=== PATIENT | female | born 1955 | race Caucasian/White ===

== ENCOUNTER 2021-03-29 09:55 | Emergency (ER) | payer OTHER, MEDICAID, SELFPAY ==
[2021-03-29] VITALS (59 sets, daily range): BP systolic 54–149; BP diastolic 34–75; PULSE 83–100; RESP 14–50; TEMP 34.8; O2SAT 77–100; BMI 19.7
--- NOTE | 2021-03-29 09:57 | DI.CT.S_ITS ---
PROCEDURE: CT ABDOMEN PELVIS W CON INDICATIONS: Left-sided abdominal pain TECHNIQUE: After the administration of oral and IV contrast, axial sections were acquired from the lung bases to the pubic symphysis. Coronal and sagittal reformats were performed. For radiation dose reduction, the following was used: automated exposure control, adjustment of mA and/or kV according to patient size. COMPARISON: [facility], , [place] ABDOMEN LIMITED, 03/29/2021, 10:27. FINDINGS: Image quality: Excellent. Lung bases: No pleural effusion. Punctate nodule in the right lower lobe measuring 0.2 cm is likely a calcified granuloma. Heart: Small right and midline pericardial nodules. Trace pericardial fluid. Paraesophageal nodule with central hypodensity measuring 2.6 x 2.2 cm, (2/8). ABDOMEN: Liver: Multiple irregular hypodense hepatic lesions. For example: -inferior right lobe measures 6.3 x 3.8 cm, (2/32). -superior right lobe confluent lesion measuring at 6.8 x 6.7 cm, (2/10). Additional small lesions. Liver enhances heterogeneously. Liver is enlarged. Gallbladder: Dilated gallbladder. Trace pericholecystic fluid. Possible tiny calcified gallstone, (2/40). Biliary ducts: Left intrahepatic bile duct is prominent measuring at 0.7 cm, (2/21). The CBD is obscured. Pancreas: Hypodensity in the head of the pancreas. The pancreatic duct does not appear dilated. At the brianne hepatis and likely anterior to the pancreas there is confluent adenopathy with central hypodensity measuring 7.4 x 4.6 cm, (2/23). This measures 7.5 cm in craniocaudal dimension, (4/20). Spleen: No splenomegaly. Adrenal Glands: Minimal thickening of the left adrenal gland. Kidneys and Ureters: No hydronephrosis. No solid renal mass. Small hypodensity in the inferior pole of the left kidney. Stomach and Bowel: Stomach is prominent. There is no small bowel obstruction. The small bowel in the left abdomen demonstrates mild thickening, (2/41). A few colonic diverticuli. The appendix is not seen. Peritoneum: Moderate volume of ascites. No free air. Ventral Wall: No hernia. Abdominal Nodes: Prominent left periaortic node measuring 0.9 cm, (2/31). Shotty appearing retroperitoneal nodes. Suspect portal adenopathy as described above. Vessels: Aorta and inferior vena cava are normal in size. Extensive calcified atherosclerotic plaque. Portal vein appears attenuated. Intrahepatic periportal edema. PELVIS: Pelvic Organs: Uterus is within normal limits. Bladder: Distended. Pelvic Nodes: No enlarged lymph nodes. Miscellaneous: No inguinal hernias are seen. Bones: No suspicious lesions seen. Grade 1 anterolisthesis of L4 on L5. DDD. IMPRESSION: 1. Multiple irregular hypodense lesions in the liver consistent with metastatic disease. 2. Confluent adenopathy at the brianne hepatis with central necrosis is suspected. Alternatively, this could represent a large exophytic pancreatic adenocarcinoma. 3. Hydropic gallbladder. 4. Enlarged necrotic paraesophageal lymph node. Small pericardiac nodes. Small retroperitoneal nodes. 5. Mild prominence of the left intrahepatic bile duct. CBD is obscured. 6. Moderate ascites. Dictated by: Yassine Contreras M.D. on 03/29/2021 at 10:39 Approved by: Yassine Contreras M.D. on 03/29/2021 at 11:03
--- NOTE | 2021-03-29 10:03 | ED_ITS ---
HPI - General Adult <Armin Navarro DO - Last Filed: 03/30/21 06:57> General Chief complaint: Abdominal Pain Stated complaint: LRQ pain and weakness Time Seen by Provider: 03/29/21 09:56 Source: patient Mode of arrival: EMS History of Present Illness HPI narrative: Patient is a 65-year-old female who is brought in by EMS for evaluation of abdominal discomfort. She states that she has had abdominal discomfort off and on for the past week but it really has been worse for the past 12 hours. She did receive 100 mcg of fentanyl prior to arrival. She does drink alcohol on a daily basis. She is also jaundice which per EMS this is new for her. She also has abdominal distension which is new for her. She denies any other medical problems. Denies taking any medications. Has had no change in bowel habits. No urinary symptoms. No nausea vomiting. Does have some chest tightness. No shortness of breath. Related Data Allergies Allergy/AdvReac Type Severity Reaction Status Date / Time No Known Drug Allergies Allergy Verified 03/29/21 21:39 Review of Systems <DO Leroy Nash Last Filed: 03/30/21 06:57> Constitutional Constitutional: Denies fever(s) Cardiovascular Cardiovascular: Reports system reviewed and no additional complaints, except as documented Respiratory Respiratory: Reports system reviewed and no additional complaints, except as documented Gastrointestinal Gastrointestinal: Reports as per HPI and Reports system reviewed and no additional complaints, except as documented Genitourinary Genitourinary: Reports system reviewed and no additional complaints, except as documented Musculoskeletal Musculoskeletal: Reports system reviewed and no additional complaints, except as documented Integumentary/Breasts Skin/Breast: Reports as per HPI Neurologic Neurologic: Reports system reviewed and no additional complaints, except as documented Psychiatric Psychiatric: Reports system reviewed and no additional complaints, except as documented Hematologic/Lymphatic On Anticoagulants: No Allergic/Immunologic Allergic/Immunologic: Reports system reviewed and no additional complaints, except as documented Patient History <DO Leroy Nash Last Filed: 03/30/21 06:57> Medical History Patient denies medical problems Social History lives independently: Yes Smoking Status: Unknown if ever smoked Exam <DO Leroy Nash Last Filed: 03/30/21 06:57> Initial Vital Signs Initial Vital Signs: Vital Signs Pulse Rate 92 H 03/29/21 10:01 Respiratory Rate 20 03/29/21 10:01 Blood Pressure 137/73 03/29/21 10:01 Pulse Oximetry 99 03/29/21 10:01 Const General: cooperative and comfortable HENMT Head: normal to inspection and normocephalic Eyes Sclera: scleral abnormality (Jaundice) Resp Effort & Inspection: normal respiratory effort Auscultation: clear to auscultation bilaterally Cardio Rate: regular rate GI Inspection: distended Palpation: soft, No firm and tender Skin Other: Jaundice Neuro General: patient alert, patient awake, patient oriented x3 and moves all extremities Extrem General: normal to inspection and capillary refill normal Psych Appearance: grossly normal and well kempt <Ladonna Smalls DO - Last Filed: 03/30/21 06:29> Initial Vital Signs Initial Vital Signs: Vital Signs Pulse Rate 92 H 03/29/21 10:01 Respiratory Rate 20 03/29/21 10:01 Blood Pressure 137/73 03/29/21 10:01 Pulse Oximetry 99 03/29/21 10:01 <Ladonna Smalls DO - Last Filed: 03/30/21 06:29> Central Line Placement Right IJ: Patient Placed on Monitor/Pulse Ox: Yes MD Prep: mask, gown and gloves Central Line Prep: Chlorhexidine scrub Local Anesthetic: lidocaine 1% Amount of anesthesia used (mL): 3 Ultrasound Used for Placement: Yes Additional Comments: Unsuccessful attempt. Appears quite dry with very collapsible IJ. Right Femoral: Patient Placed on Monitor/Pulse Ox: Yes MD Prep: mask, gown and gloves Central Line Prep: Chlorhexidine scrub and sterile drapes applied Local Anesthetic: lidocaine 1% Amount of anesthesia used (mL): 5 Ultrasound Used for Placement: Yes Central Line Lumen Inserted: triple Post Procedure: sutured in place, good blood return, all ports aspirated, flushed, capped and sterile dressing applied Patient Tolerated Procedure: Well Scores <Armin Navarro DO - Last Filed: 03/30/21 06:57> [facility] [place] coma scale eye opening: Spontaneous Ade[place] coma scale verbal response: Orientated Adele coma scale motor response: Obey commands Adele coma scale total score: 15 <Ladonna Smalls DO - Last Filed: 03/30/21 06:29> GCS [place] coma scale total score: 15 Course <Armin Selinaantonia DO - Last Filed: 03/30/21 06:57> Orders Ordered: ED Orders 03/29/21 22:05 Lactate (Lactic Acid) Stat 03/30/21 00:14 Lactate (Lactic Acid) Stat 03/30/21 05:00 Complete Blood Count AUTO DIFF Stat Comprehensive Metabolic Panel Stat Lactate (Lactic Acid) Stat Troponin & CK Cardiac Panel Stat Discontinued Medications Aspirin (Aspirin 325 Mg Tablet) 325 mg PO NOW ONE Stop: 03/29/21 11:11 Last Admin: 03/29/21 11:30 Dose: 325 mg Documented by: NAHID Heparin Sodium (Porcine) (Heparin 5,000 Unit/Ml Vial) 4,000 unit IV NOW ONE Stop: 03/29/21 21:04 Last Admin: 03/29/21 21:35 Dose: Not Given Documented by: SUNIL Hydromorphone HCl (Hydromorphone 0.5 Mg Inj) 0.5 mg IV NOW ONE Stop: 03/29/21 16:18 Last Admin: 03/29/21 16:34 Dose: 0.5 mg Documented by: NAHID Hydromorphone HCl (Hydromorphone 0.5 Mg Inj) 0.5 mg IV NOW ONE Stop: 03/29/21 21:05 Last Admin: 03/29/21 21:05 Dose: 0.5 mg Documented by: NAHID Hydromorphone HCl (Hydromorphone 0.5 Mg Inj) 0.5 mg IV NOW ONE Stop: 03/30/21 01:53 Last Admin: 03/30/21 01:57 Dose: 0.5 mg Documented by: AGUSTIN Hydromorphone HCl (Hydromorphone 0.5 Mg Inj) 0.5 mg IV Q4H [facility] Last Admin: 03/30/21 05:54 Dose: 0.5 mg Documented by: Admin: 03/30/21 02:07 Dose: Not Given Documented by: AGUSTIN Hydromorphone HCl (Hydromorphone 0.5 Mg Inj) 0.5 mg IV NOW ONE Stop: 03/30/21 04:15 Last Admin: 03/30/21 04:23 Dose: 0.5 mg Documented by: AGUSTIN Ceftriaxone Sodium 1,000 mg/ (Sodium Chloride) 100 mls @ 200 mls/hr IV NOW ONE Stop: 03/29/21 11:10 Last Infusion: 03/29/21 12:09 Dose: 0 mls/hr Documented by: Admin: 03/29/21 11:31 Dose: 200 mls/hr Documented by: [email or web address] Metronidazole (Flagyl) 500 mg in 100 mls @ 100 mls/hr IV NOW ONE Stop: 03/29/21 12:08 Last Infusion: 03/29/21 13:37 Dose: 0 mls/hr Documented by: Admin: 03/29/21 11:30 Dose: 100 mls/hr Documented by: NAHID Sodium Chloride (Normal Saline 0.9%) 1,000 mls @ 1,000 mls/hr IV BOLUS ONE Stop: 03/29/21 13:46 Last Infusion: 03/29/21 13:59 Dose: 0 mls/hr Documented by: Admin: 03/29/21 12:45 Dose: 1,000 mls/hr Documented by: [email or web address] Sodium Chloride (Normal Saline 0.9%) 1,000 mls @ 1,000 mls/hr IV BOLUS ONE Stop: 03/29/21 19:48 Last Admin: 03/29/21 20:34 Dose: Not Given Documented by: NAHID Sodium Chloride (Normal Saline 0.9%) 1,000 mls @ 125 mls/hr IV CONT NICOLE Last Infusion: 03/29/21 23:34 Dose: 0 mls/hr Documented by: Infusion: 03/29/21 22:00 Dose: 500 mls/hr Documented by: Admin: 03/29/21 19:34 Dose: 125 mls/hr Documented by: NAHID Heparin Sodium/Dextrose (Heparin Drip) 25,000 unit in 500 mls @ 12.519 mls/hr IV CONT NICOLE; Protocol Last Admin: 03/29/21 21:50 Dose: Not Given Documented by: SUNIL Sodium Chloride (Normal Saline 0.9%) 1,000 mls @ 50 mls/hr IV BOLUS ONE Stop: 03/30/21 19:43 Last Infusion: 03/30/21 06:05 Dose: 0 mls/hr Documented by: Infusion: 03/30/21 03:50 Dose: 150 mls/hr Documented by: Infusion: 03/30/21 01:54 Dose: 0 mls/hr Documented by: Infusion: 03/30/21 01:53 Dose: 500 mls/hr Documented by: Admin: 03/29/21 23:55 Dose: 50 mls/hr Documented by: SUNIL Norepinephrine Bitartrate 4 mg (/ Dextrose) 254 mls @ 30.48 mls/hr IV TITRATE NICOLE; Protocol Last Titration: 03/30/21 06:04 Dose: 0 mcg/min, 0 mls/hr Documented by: Titration: 03/30/21 04:47 Dose: 1 mcg/min, 3.81 mls/hr Documented by: Titration: 03/30/21 04:00 Dose: 1.5 mcg/min, 5.715 mls/hr Documented by: Titration: 03/30/21 03:09 Dose: 2 mcg/min, 7.62 mls/hr Documented by: Titration: 03/30/21 02:41 Dose: 3 mcg/min, 11.43 mls/hr Documented by: Titration: 03/30/21 02:25 Dose: 4 mcg/min, 15.24 mls/hr Documented by: Titration: 03/30/21 01:49 Dose: 5 mcg/min, 19.05 mls/hr Documented by: Titration: 03/30/21 01:39 Dose: 8 mcg/min, 30.48 mls/hr Documented by: Titration: 03/30/21 01:34 Dose: 5 mcg/min, 19.05 mls/hr Documented by: Admin: 03/30/21 01:27 Dose: 2 mcg/min, 7.62 mls/hr Documented by: AGUSTIN Metronidazole (Flagyl) 500 mg in 100 mls @ 100 mls/hr IV NOW ONE Stop: 03/30/21 02:13 Last Infusion: 03/30/21 02:30 Dose: 0 mls/hr Documented by: Admin: 03/30/21 01:27 Dose: 100 mls/hr Documented by: AGUSTIN Ceftriaxone Sodium 2,000 mg/ (Sodium Chloride) 100 mls @ 200 mls/hr IV DAILY [facility] Metronidazole (Flagyl) 500 mg in 100 mls @ 100 mls/hr IV Q8H [facility] Last Admin: 03/30/21 02:07 Dose: Not Given Documented by: AGUSTIN Sodium Chloride (Normal Saline 0.9%) 1,641 mls @ 547 mls/hr 30 ml/kg infuse over 3 hr (1641 ml) IV NOW ONE Stop: 03/30/21 04:54 Last Infusion: 03/30/21 04:19 Dose: 0 mls/hr Documented by: Admin: 03/30/21 01:40 Dose: 547 mls/hr Documented by: AGUSTIN Metronidazole (Flagyl) 500 mg in 100 mls @ 100 mls/hr IV Q8H [facility] Morphine Sulfate (Morphine 4 Mg/Ml Inj) 4 mg IV NOW ONE Stop: 03/29/21 10:18 Last Admin: 03/29/21 10:21 Dose: 4 mg Documented by: NAHID Morphine Sulfate (Morphine 2 Mg/Ml Inj) 2 mg IV NOW ONE Stop: 03/29/21 13:40 Last Admin: 03/29/21 13:45 Dose: 2 mg Documented by: NAHID Vital Signs Vital signs: Vital Signs - 8 hr 03/29/21 22:57 03/29/21 23:00 03/29/21 23:09 Temperature Pulse Rate 92 H 90 91 H Respiratory Rate 16 16 19 Blood Pressure 99/58 L 94/55 L 94/51 L Pulse Oximetry 98 03/29/21 23:10 03/29/21 23:20 03/29/21 23:30 Temperature Pulse Rate 88 91 H 87 Respiratory Rate 15 17 15 Blood Pressure 91/50 L 93/50 L 102/56 L Pulse Oximetry 03/29/21 23:40 03/29/21 23:50 03/30/21 00:00 Temperature Pulse Rate 89 91 H 90 Respiratory Rate 16 17 16 Blood Pressure 97/53 L 91/53 L 88/52 L Pulse Oximetry 97 97 03/30/21 00:10 03/30/21 00:20 03/30/21 00:30 Temperature Pulse Rate 91 H 90 92 H Respiratory Rate 16 17 17 Blood Pressure 89/54 L 86/54 L 84/54 L Pulse Oximetry 98 98 98 03/30/21 00:40 03/30/21 00:50 03/30/21 01:00 Temperature Pulse Rate 92 H 90 91 H Respiratory Rate 16 16 17 Blood Pressure 84/52 L 84/51 L 83/51 L Pulse Oximetry 98 92 98 03/30/21 01:10 03/30/21 01:20 03/30/21 01:30 Temperature Pulse Rate 93 H 94 H 92 H Respiratory Rate 17 21 28 H Blood Pressure 82/50 L 73/48 L 71/51 L Pulse Oximetry 97 97 95 03/30/21 01:33 03/30/21 01:35 03/30/21 01:38 Temperature Pulse Rate 91 H 90 92 H Respiratory Rate 28 H 21 18 Blood Pressure 54/33 L 60/39 L 71/53 L Pulse Oximetry 98 98 100 03/30/21 01:40 03/30/21 01:46 03/30/21 01:50 Temperature 95.0 F L Pulse Rate 93 H 91 H 91 H Respiratory Rate 19 18 18 Blood Pressure 116/64 134/69 129/68 Pulse Oximetry 98 99 97 03/30/21 02:00 03/30/21 02:10 03/30/21 02:20 Temperature 95.9 F L 96.1 F L 96.1 F L Pulse Rate 88 87 88 Respiratory Rate 16 13 13 Blood Pressure 126/64 125/65 127/66 Pulse Oximetry 90 L 93 94 03/30/21 02:30 03/30/21 02:40 03/30/21 02:50 Temperature 96.1 F L 96.1 F L Pulse Rate 91 H 90 Respiratory Rate 15 15 Blood Pressure 118/65 119/63 115/60 Pulse Oximetry 91 90 L 03/30/21 03:00 03/30/21 03:10 03/30/21 03:20 Temperature 96.1 F L Pulse Rate 92 H Respiratory Rate 20 Blood Pressure 117/62 109/58 L 111/58 L Pulse Oximetry 95 03/30/21 03:30 03/30/21 03:40 03/30/21 03:50 Temperature 96.1 F L 96.1 F L 96.1 F L Pulse Rate 89 89 91 H Respiratory Rate 15 13 16 Blood Pressure 107/63 111/64 109/59 L Pulse Oximetry 91 92 94 03/30/21 04:00 03/30/21 04:10 03/30/21 04:20 Temperature 96.3 F L 96.4 F L Pulse Rate 92 H 92 H Respiratory Rate 17 15 Blood Pressure 110/60 101/60 97/57 L Pulse Oximetry 90 L 95 03/30/21 04:30 03/30/21 04:40 03/30/21 04:50 Temperature 96.6 F L Pulse Rate 90 Respiratory Rate 12 Blood Pressure 99/58 L 102/57 L 92/50 L Pulse Oximetry 94 03/30/21 05:00 03/30/21 05:10 03/30/21 05:20 Temperature 96.6 F L 96.6 F L 96.8 F L Pulse Rate 90 90 91 H Respiratory Rate 13 12 13 Blood Pressure 91/53 L 94/52 L 93/52 L Pulse Oximetry 94 96 93 03/30/21 05:30 03/30/21 05:40 03/30/21 05:50 Temperature 96.8 F L 96.8 F L 96.8 F L Pulse Rate 92 H 92 H 92 H Respiratory Rate 13 14 14 Blood Pressure 94/54 L 89/54 L 91/53 L Pulse Oximetry 94 95 94 03/30/21 06:00 Temperature Pulse Rate 94 H Respiratory Rate 16 Blood Pressure Pulse Oximetry <Ladonna Smalls DO - Last Filed: 03/30/21 06:29> Orders Ordered: ED Orders 03/29/21 22:05 Lactate (Lactic Acid) Stat 03/30/21 00:14 Lactate (Lactic Acid) Stat 03/30/21 05:00 Complete Blood Count AUTO DIFF Stat Comprehensive Metabolic Panel Stat Lactate (Lactic Acid) Stat Troponin & CK Cardiac Panel Stat Discontinued Medications Aspirin (Aspirin 325 Mg Tablet) 325 mg PO NOW ONE Stop: 03/29/21 11:11 Last Admin: 03/29/21 11:30 Dose: 325 mg Documented by: NAHID Heparin Sodium (Porcine) (Heparin 5,000 Unit/Ml Vial) 4,000 unit IV NOW ONE Stop: 03/29/21 21:04 Last Admin: 03/29/21 21:35 Dose: Not Given Documented by: SUNIL Hydromorphone HCl (Hydromorphone 0.5 Mg Inj) 0.5 mg IV NOW ONE Stop: 03/29/21 16:18 Last Admin: 03/29/21 16:34 Dose: 0.5 mg Documented by: NAHID Hydromorphone HCl (Hydromorphone 0.5 Mg Inj) 0.5 mg IV NOW ONE Stop: 03/29/21 21:05 Last Admin: 03/29/21 21:05 Dose: 0.5 mg Documented by: NAHID Hydromorphone HCl (Hydromorphone 0.5 Mg Inj) 0.5 mg IV NOW ONE Stop: 03/30/21 01:53 Last Admin: 03/30/21 01:57 Dose: 0.5 mg Documented by: AGUSTIN Hydromorphone HCl (Hydromorphone 0.5 Mg Inj) 0.5 mg IV Q4H [facility]ICO[facility] Last Admin: 03/30/21 05:54 Dose: 0.5 mg Documented by: Admin: 03/30/21 02:07 Dose: Not Given Documented by: AGUSTIN Hydromorphone HCl (Hydromorphone 0.5 Mg Inj) 0.5 mg IV NOW ONE Stop: 03/30/21 04:15 Last Admin: 03/30/21 04:23 Dose: 0.5 mg Documented by: AGUSTIN Ceftriaxone Sodium 1,000 mg/ (Sodium Chloride) 100 mls @ 200 mls/hr IV NOW ONE Stop: 03/29/21 11:10 Last Infusion: 03/29/21 12:09 Dose: 0 mls/hr Documented by: Admin: 03/29/21 11:31 Dose: 200 mls/hr Documented by: NAHID Metronidazole (Flagyl) 500 mg in 100 mls @ 100 mls/hr IV NOW ONE Stop: 03/29/21 12:08 Last Infusion: 03/29/21 13:37 Dose: 0 mls/hr Documented by: Admin: 03/29/21 11:30 Dose: 100 mls/hr Documented by: NAHID Sodium Chloride (Normal Saline 0.9%) 1,000 mls @ 1,000 mls/hr IV BOLUS ONE Stop: 03/29/21 13:46 Last Infusion: 03/29/21 13:59 Dose: 0 mls/hr Documented by: Admin: 03/29/21 12:45 Dose: 1,000 mls/hr Documented by: NAHID Sodium Chloride (Normal Saline 0.9%) 1,000 mls @ 1,000 mls/hr IV BOLUS ONE Stop: 03/29/21 19:48 Last Admin: 03/29/21 20:34 Dose: Not Given Documented by: NAHID Sodium Chloride (Normal Saline 0.9%) 1,000 mls @ 125 mls/hr IV CONT NICOLE Last Infusion: 03/29/21 23:34 Dose: 0 mls/hr Documented by: Infusion: 03/29/21 22:00 Dose: 500 mls/hr Documented by: Admin: 03/29/21 19:34 Dose: 125 mls/hr Documented by: NAHID Heparin Sodium/Dextrose (Heparin Drip) 25,000 unit in 500 mls @ 12.519 mls/hr IV CONT NICOLE; Protocol Last Admin: 03/29/21 21:50 Dose: Not Given Documented by: SUNIL Sodium Chloride (Normal Saline 0.9%) 1,000 mls @ 50 mls/hr IV BOLUS ONE Stop: 03/30/21 19:43 Last Infusion: 03/30/21 06:05 Dose: 0 mls/hr Documented by: Infusion: 03/30/21 03:50 Dose: 150 mls/hr Documented by: Infusion: 03/30/21 01:54 Dose: 0 mls/hr Documented by: Infusion: 03/30/21 01:53 Dose: 500 mls/hr Documented by: Admin: 03/29/21 23:55 Dose: 50 mls/hr Documented by: SUNIL Norepinephrine Bitartrate 4 mg (/ Dextrose) 254 mls @ 30.48 mls/hr IV TITRATE NICOLE; Protocol Last Titration: 03/30/21 06:04 Dose: 0 mcg/min, 0 mls/hr Documented by: Titration: 03/30/21 04:47 Dose: 1 mcg/min, 3.81 mls/hr Documented by: Titration: 03/30/21 04:00 Dose: 1.5 mcg/min, 5.715 mls/hr Documented by: Titration: 03/30/21 03:09 Dose: 2 mcg/min, 7.62 mls/hr Documented by: Titration: 03/30/21 02:41 Dose: 3 mcg/min, 11.43 mls/hr Documented by: Titration: 03/30/21 02:25 Dose: 4 mcg/min, 15.24 mls/hr Documented by: Titration: 03/30/21 01:49 Dose: 5 mcg/min, 19.05 mls/hr Documented by: Titration: 03/30/21 01:39 Dose: 8 mcg/min, 30.48 mls/hr Documented by: Titration: 03/30/21 01:34 Dose: 5 mcg/min, 19.05 mls/hr Documented by: Admin: 03/30/21 01:27 Dose: 2 mcg/min, 7.62 mls/hr Documented by: AGUSTIN Metronidazole (Flagyl) 500 mg in 100 mls @ 100 mls/hr IV NOW ONE Stop: 03/30/21 02:13 Last Infusion: 03/30/21 02:30 Dose: 0 mls/hr Documented by: Admin: 03/30/21 01:27 Dose: 100 mls/hr Documented by: AGUSTIN Ceftriaxone Sodium 2,000 mg/ (Sodium Chloride) 100 mls @ 200 mls/hr IV DAILY [facility] Metronidazole (Flagyl) 500 mg in 100 mls @ 100 mls/hr IV Q8H [facility] Last Admin: 03/30/21 02:07 Dose: Not Given Documented by: AGUSTIN Sodium Chloride (Normal Saline 0.9%) 1,641 mls @ 547 mls/hr 30 ml/kg infuse over 3 hr (1641 ml) IV NOW ONE Stop: 03/30/21 04:54 Last Infusion: 03/30/21 04:19 Dose: 0 mls/hr Documented by: Admin: 03/30/21 01:40 Dose: 547 mls/hr Documented by: AGUSTIN Metronidazole (Flagyl) 500 mg in 100 mls @ 100 mls/hr IV Q8H [facility] Morphine Sulfate (Morphine 4 Mg/Ml Inj) 4 mg IV NOW ONE Stop: 03/29/21 10:18 Last Admin: 03/29/21 10:21 Dose: 4 mg Documented by: NAHID Morphine Sulfate (Morphine 2 Mg/Ml Inj) 2 mg IV NOW ONE Stop: 03/29/21 13:40 Last Admin: 03/29/21 13:45 Dose: 2 mg Documented by: NAHID Vital Signs Vital signs: Vital Signs - 8 hr 03/29/21 22:57 03/29/21 23:00 03/29/21 23:09 Temperature Pulse Rate 92 H 90 91 H Respiratory Rate 16 16 19 Blood Pressure 99/58 L 94/55 L 94/51 L Pulse Oximetry 98 03/29/21 23:10 03/29/21 23:20 03/29/21 23:30 Temperature Pulse Rate 88 91 H 87 Respiratory Rate 15 17 15 Blood Pressure 91/50 L 93/50 L 102/56 L Pulse Oximetry 03/29/21 23:40 03/29/21 23:50 03/30/21 00:00 Temperature Pulse Rate 89 91 H 90 Respiratory Rate 16 17 16 Blood Pressure 97/53 L 91/53 L 88/52 L Pulse Oximetry 97 97 03/30/21 00:10 03/30/21 00:20 03/30/21 00:30 Temperature Pulse Rate 91 H 90 92 H Respiratory Rate 16 17 17 Blood Pressure 89/54 L 86/54 L 84/54 L Pulse Oximetry 98 98 98 03/30/21 00:40 03/30/21 00:50 03/30/21 01:00 Temperature Pulse Rate 92 H 90 91 H Respiratory Rate 16 16 17 Blood Pressure 84/52 L 84/51 L 83/51 L Pulse Oximetry 98 92 98 03/30/21 01:10 03/30/21 01:20 03/30/21 01:30 Temperature Pulse Rate 93 H 94 H 92 H Respiratory Rate 17 21 28 H Blood Pressure 82/50 L 73/48 L 71/51 L Pulse Oximetry 97 97 95 03/30/21 01:33 03/30/21 01:35 03/30/21 01:38 Temperature Pulse Rate 91 H 90 92 H Respiratory Rate 28 H 21 18 Blood Pressure 54/33 L 60/39 L 71/53 L Pulse Oximetry 98 98 100 03/30/21 01:40 03/30/21 01:46 03/30/21 01:50 Temperature 95.0 F L Pulse Rate 93 H 91 H 91 H Respiratory Rate 19 18 18 Blood Pressure 116/64 134/69 129/68 Pulse Oximetry 98 99 97 03/30/21 02:00 03/30/21 02:10 03/30/21 02:20 Temperature 95.9 F L 96.1 F L 96.1 F L Pulse Rate 88 87 88 Respiratory Rate 16 13 13 Blood Pressure 126/64 125/65 127/66 Pulse Oximetry 90 L 93 94 03/30/21 02:30 03/30/21 02:40 03/30/21 02:50 Temperature 96.1 F L 96.1 F L Pulse Rate 91 H 90 Respiratory Rate 15 15 Blood Pressure 118/65 119/63 115/60 Pulse Oximetry 91 90 L 03/30/21 03:00 03/30/21 03:10 03/30/21 03:20 Temperature 96.1 F L Pulse Rate 92 H Respiratory Rate 20 Blood Pressure 117/62 109/58 L 111/58 L Pulse Oximetry 95 03/30/21 03:30 03/30/21 03:40 03/30/21 03:50 Temperature 96.1 F L 96.1 F L 96.1 F L Pulse Rate 89 89 91 H Respiratory Rate 15 13 16 Blood Pressure 107/63 111/64 109/59 L Pulse Oximetry 91 92 94 03/30/21 04:00 03/30/21 04:10 03/30/21 04:20 Temperature 96.3 F L 96.4 F L Pulse Rate 92 H 92 H Respiratory Rate 17 15 Blood Pressure 110/60 101/60 97/57 L Pulse Oximetry 90 L 95 03/30/21 04:30 03/30/21 04:40 03/30/21 04:50 Temperature 96.6 F L Pulse Rate 90 Respiratory Rate 12 Blood Pressure 99/58 L 102/57 L 92/50 L Pulse Oximetry 94 03/30/21 05:00 03/30/21 05:10 03/30/21 05:20 Temperature 96.6 F L 96.6 F L 96.8 F L Pulse Rate 90 90 91 H Respiratory Rate 13 12 13 Blood Pressure 91/53 L 94/52 L 93/52 L Pulse Oximetry 94 96 93 03/30/21 05:30 03/30/21 05:40 03/30/21 05:50 Temperature 96.8 F L 96.8 F L 96.8 F L Pulse Rate 92 H 92 H 92 H Respiratory Rate 13 14 14 Blood Pressure 94/54 L 89/54 L 91/53 L Pulse Oximetry 94 95 94 03/30/21 06:00 Temperature Pulse Rate 94 H Respiratory Rate 16 Blood Pressure Pulse Oximetry Medical Decision Making <Armin Navarro - Last Filed: 03/30/21 06:57> Lab Data Lab results reviewed: Yes I reviewed the patient's lab results. Result diagrams: 03/30/21 05:00 03/30/21 05:00 Labs: Lab Results 03/29/21 03/29/21 03/29/21 Range/Units 10:00 10:00 10:00 WBC 33.9 H* (4.5-11.0) X10^3/uL RBC 3.05 L (4.0-5.2) X10^6/uL Hgb 9.1 L (12.0-16.0) g/dL Hct 27.0 L (36-46) % MCV 88.5 (80-100) fL MCH 29.7 (26-34) PG MCHC 33.5 (30-36) % RDW 15.2 H (11.6-14.8) % Plt Count 670 H (150-400) X10^3/uL Neut % (Auto) Not Reportable Lymph % (Auto) Not Reportable [place] % (Auto) Not Reportable Eos % (Auto) Not Reportable Baso % (Auto) Not Reportable Lymph # (Auto) Not Reportable [place] # (Auto) Not Reportable Baso # (Auto) Not Reportable Total Counted 100 Seg Neutrophils % 94.0 H (38-70) % Band Neutrophils % 2.0 L (3-7) % Lymphocytes % (Manual) 3.0 L (25-45) % Monocytes % (Manual) 1.0 L (2-11) % Neutrophils # (Manual) 95910 H (3583-8848) /uL RBC Morphology Not Reportable Poikilocytosis 1+ H Anisocytosis 2+ H PT (10.1-12.7) SECONDS INR (0.9-1.3) APTT (26.4-36.2) SECONDS Sodium 122 L (137-145) mmol/L Potassium 3.7 (3.4-5.1) mmol/L Chloride 86 L (98-107) mmol/L Carbon Dioxide 24 (22-32) mmol/L BUN 40 H (7-17) mg/dL Creatinine 0.69 (0.52-1.04) mg/dL Estimated GFR > 60.0 (>60) mL/min BUN/Creatinine Ratio 58.0 H (6-22) Glucose 169 H (80-110) mg/dL Lactate 2.8 H (0.7-2.1) mmol/L Calcium 10.1 (8.4-10.2) mg/dL Total Bilirubin 3.8 H (0.2-1.3) mg/dL Conjugated Bilirubin 0.9 H (0.0-0.3) md/dL Unconjugated Bilirubin 0.8 (0.0-1.1) mg/dL GGT (12-43) U/L AST 104 H (14-36) IU/L ALT 99 H (<35) IU/L Alkaline Phosphatase 1915 H (38-126) U/L Total Creatine Kinase (30-135) U/L CK-MB (CK-2) CK-MB (CK-2) Rel Index Troponin I (0.01-0.034) ng/mL Total Protein 7.3 (6.3-8.2) g/dL Albumin 3.7 (3.5-5.0) g/dL Globulin 3.6 (1.7-4.1) g/dL Albumin/Globulin Ratio 1.0 (1.0-2.8) Lipase 21 L (23-300) U/L Urine Color Urine Appearance Urine pH (4.5-8.0) Ur Specific [place] (1.000-1.035) Urine Protein (Negative) Urine Glucose (UA) (Negative) g/dL Urine Ketones (NEGATIVE) Urine Occult Blood (Negative) Urine Nitrate (Negative) Urine Bilirubin (NEGATIVE) Ur Bilirubin Confirm (Negative) Urine Urobilinogen (0.2) E.U./dL Ur Leukocyte Esterase (NEGATIVE) Urine RBC (0-5/HPF) Urine WBC (0-5/HPF) Urine Bacteria (None) Ur Culture Indicated? Acetaminophen < 10 L (10-30) ug/mL Ethyl Alcohol < 10 ( - 10) mg/dL SARS-CoV-2 (PCR) (Negative) 03/29/21 03/29/21 03/29/21 Range/Units 10:00 10:00 10:45 WBC (4.5-11.0) X10^3/uL RBC (4.0-5.2) X10^6/uL Hgb (12.0-16.0) g/dL Hct (36-46) % MCV (80-100) fL MCH (26-34) PG MCHC (30-36) % RDW (11.6-14.8) % Plt Count (150-400) X10^3/uL Neut % (Auto) Lymph % (Auto) [place] % (Auto) Eos % (Auto) Baso % (Auto) Lymph # (Auto) [place] # (Auto) Baso # (Auto) Total Counted Seg Neutrophils % (38-70) % Band Neutrophils % (3-7) % Lymphocytes % (Manual) (25-45) % Monocytes % (Manual) (2-11) % Neutrophils # (Manual) (3637-9876) /uL RBC Morphology Poikilocytosis Anisocytosis PT (10.1-12.7) SECONDS INR (0.9-1.3) APTT (26.4-36.2) SECONDS Sodium (137-145) mmol/L Potassium (3.4-5.1) mmol/L Chloride (98-107) mmol/L Carbon Dioxide (22-32) mmol/L BUN (7-17) mg/dL Creatinine (0.52-1.04) mg/dL Estimated GFR (>60) mL/min BUN/Creatinine Ratio (6-22) Glucose (80-110) mg/dL Lactate (0.7-2.1) mmol/L Calcium (8.4-10.2) mg/dL Total Bilirubin (0.2-1.3) mg/dL Conjugated Bilirubin (0.0-0.3) md/dL Unconjugated Bilirubin (0.0-1.1) mg/dL GGT 891 H (12-43) U/L AST (14-36) IU/L ALT (<35) IU/L Alkaline Phosphatase (38-126) U/L Total Creatine Kinase 25 L (30-135) U/L CK-MB (CK-2) TNP CK-MB (CK-2) Rel Index TNP Troponin I 0.387 H* (0.01-0.034) ng/mL Total Protein (6.3-8.2) g/dL Albumin (3.5-5.0) g/dL Globulin (1.7-4.1) g/dL Albumin/Globulin Ratio (1.0-2.8) Lipase (23-300) U/L Urine Color Urine Appearance Urine pH (4.5-8.0) Ur Specific [place] (1.000-1.035) Urine Protein (Negative) Urine Glucose (UA) (Negative) g/dL Urine Ketones (NEGATIVE) Urine Occult Blood (Negative) Urine Nitrate (Negative) Urine Bilirubin (NEGATIVE) Ur Bilirubin Confirm (Negative) Urine Urobilinogen (0.2) E.U./dL Ur Leukocyte Esterase (NEGATIVE) Urine RBC (0-5/HPF) Urine WBC (0-5/HPF) Urine Bacteria (None) Ur Culture Indicated? Acetaminophen (10-30) ug/mL Ethyl Alcohol ( - 10) mg/dL SARS-CoV-2 (PCR) Negative (Negative) 03/29/21 03/29/21 03/29/21 Range/Units 12:16 12:40 14:24 WBC (4.5-11.0) X10^3/uL RBC (4.0-5.2) X10^6/uL Hgb (12.0-16.0) g/dL Hct (36-46) % MCV (80-100) fL MCH (26-34) PG MCHC (30-36) % RDW (11.6-14.8) % Plt Count (150-400) X10^3/uL Neut % (Auto) Lymph % (Auto) [place] % (Auto) Eos % (Auto) Baso % (Auto) Lymph # (Auto) [place] # (Auto) Baso # (Auto) Total Counted Seg Neutrophils % (38-70) % Band Neutrophils % (3-7) % Lymphocytes % (Manual) (25-45) % Monocytes % (Manual) (2-11) % Neutrophils # (Manual) (5217-0656) /uL RBC Morphology Poikilocytosis Anisocytosis PT (10.1-12.7) SECONDS INR (0.9-1.3) APTT (26.4-36.2) SECONDS Sodium (137-145) mmol/L Potassium (3.4-5.1) mmol/L Chloride (98-107) mmol/L Carbon Dioxide (22-32) mmol/L BUN (7-17) mg/dL Creatinine (0.52-1.04) mg/dL Estimated GFR (>60) mL/min BUN/Creatinine Ratio (6-22) Glucose (80-110) mg/dL Lactate 2.4 H (0.7-2.1) mmol/L Calcium (8.4-10.2) mg/dL Total Bilirubin (0.2-1.3) mg/dL Conjugated Bilirubin (0.0-0.3) md/dL Unconjugated Bilirubin (0.0-1.1) mg/dL GGT (12-43) U/L AST (14-36) IU/L ALT (<35) IU/L Alkaline Phosphatase (38-126) U/L Total Creatine Kinase 32 (30-135) U/L CK-MB (CK-2) TNP CK-MB (CK-2) Rel Index TNP Troponin I 0.779 H* (0.01-0.034) ng/mL Total Protein (6.3-8.2) g/dL Albumin (3.5-5.0) g/dL Globulin (1.7-4.1) g/dL Albumin/Globulin Ratio (1.0-2.8) Lipase (23-300) U/L Urine Color Yellow Urine Appearance Clear Urine pH 6.5 (4.5-8.0) Ur Specific [place] <=1.005 (1.000-1.035) Urine Protein 1+ H (Negative) Urine Glucose (UA) Trace H (Negative) g/dL Urine Ketones Trace H (NEGATIVE) Urine Occult Blood Trace-lysed (Negative) Urine Nitrate Negative (Negative) Urine Bilirubin 2+ H (NEGATIVE) Ur Bilirubin Confirm Positive H (Negative) Urine Urobilinogen 0.2 (0.2) E.U./dL Ur Leukocyte Esterase 2+ H (NEGATIVE) Urine RBC 0-1/hpf (0-5/HPF) Urine WBC 5-10/hpf H (0-5/HPF) Urine Bacteria None seen (None) Ur Culture Indicated? Specimen cultured Acetaminophen (10-30) ug/mL Ethyl Alcohol ( - 10) mg/dL SARS-CoV-2 (PCR) (Negative) 03/29/21 03/29/21 03/29/21 Range/Units 18:12 18:12 22:05 WBC (4.5-11.0) X10^3/uL RBC (4.0-5.2) X10^6/uL Hgb (12.0-16.0) g/dL Hct (36-46) % MCV (80-100) fL MCH (26-34) PG MCHC (30-36) % RDW (11.6-14.8) % Plt Count (150-400) X10^3/uL Neut % (Auto) Lymph % (Auto) [place] % (Auto) Eos % (Auto) Baso % (Auto) Lymph # (Auto) [place] # (Auto) Baso # (Auto) Total Counted Seg Neutrophils % (38-70) % Band Neutrophils % (3-7) % Lymphocytes % (Manual) (25-45) % Monocytes % (Manual) (2-11) % Neutrophils # (Manual) (1964-5716) /uL RBC Morphology Poikilocytosis Anisocytosis PT 84.6 H (10.1-12.7) SECONDS INR 7.2 H* (0.9-1.3) APTT 55 H (26.4-36.2) SECONDS Sodium (137-145) mmol/L Potassium (3.4-5.1) mmol/L Chloride (98-107) mmol/L Carbon Dioxide (22-32) mmol/L BUN (7-17) mg/dL Creatinine (0.52-1.04) mg/dL Estimated GFR (>60) mL/min BUN/Creatinine Ratio (6-22) Glucose (80-110) mg/dL Lactate 4.9 H* (0.7-2.1) mmol/L Calcium (8.4-10.2) mg/dL Total Bilirubin (0.2-1.3) mg/dL Conjugated Bilirubin (0.0-0.3) md/dL Unconjugated Bilirubin (0.0-1.1) mg/dL GGT (12-43) U/L AST (14-36) IU/L ALT (<35) IU/L Alkaline Phosphatase (38-126) U/L Total Creatine Kinase 23 L (30-135) U/L CK-MB (CK-2) TNP CK-MB (CK-2) Rel Index TNP Troponin I 1.160 H* (0.01-0.034) ng/mL Total Protein (6.3-8.2) g/dL Albumin (3.5-5.0) g/dL Globulin (1.7-4.1) g/dL Albumin/Globulin Ratio (1.0-2.8) Lipase (23-300) U/L Urine Color Urine Appearance Urine pH (4.5-8.0) Ur Specific [place] (1.000-1.035) Urine Protein (Negative) Urine Glucose (UA) (Negative) g/dL Urine Ketones (NEGATIVE) Urine Occult Blood (Negative) Urine Nitrate (Negative) Urine Bilirubin (NEGATIVE) Ur Bilirubin Confirm (Negative) Urine Urobilinogen (0.2) E.U./dL Ur Leukocyte Esterase (NEGATIVE) Urine RBC (0-5/HPF) Urine WBC (0-5/HPF) Urine Bacteria (None) Ur Culture Indicated? Acetaminophen (10-30) ug/mL Ethyl Alcohol ( - 10) mg/dL SARS-CoV-2 (PCR) (Negative) 03/30/21 03/30/21 03/30/21 Range/Units 00:14 02:25 05:00 WBC 33.0 H* (4.5-11.0) X10^3/uL RBC 2.41 L (4.0-5.2) X10^6/uL Hgb 7.0 L (12.0-16.0) g/dL Hct 21.6 L (36-46) % MCV 89.8 (80-100) fL MCH 29.2 (26-34) PG MCHC 32.6 (30-36) % RDW 15.9 H (11.6-14.8) % Plt Count 495 H (150-400) X10^3/uL Neut % (Auto) Not Reportable Lymph % (Auto) Not Reportable [place] % (Auto) Not Reportable Eos % (Auto) Not Reportable Baso % (Auto) Not Reportable Lymph # (Auto) Not Reportable [place] # (Auto) Not Reportable Baso # (Auto) Not Reportable Total Counted 100 Seg Neutrophils % 82.0 H (38-70) % Band Neutrophils % 7.0 (3-7) % Lymphocytes % (Manual) 10.0 L (25-45) % Monocytes % (Manual) 1.0 L (2-11) % Neutrophils # (Manual) 49684 H (5122-4870) /uL RBC Morphology See below Poikilocytosis Anisocytosis 1+ H PT (10.1-12.7) SECONDS INR (0.9-1.3) APTT (26.4-36.2) SECONDS Sodium (137-145) mmol/L Potassium (3.4-5.1) mmol/L Chloride (98-107) mmol/L Carbon Dioxide (22-32) mmol/L BUN (7-17) mg/dL Creatinine (0.52-1.04) mg/dL Estimated GFR (>60) mL/min BUN/Creatinine Ratio (6-22) Glucose (80-110) mg/dL Lactate 2.5 H 2.4 H (0.7-2.1) mmol/L Calcium (8.4-10.2) mg/dL Total Bilirubin (0.2-1.3) mg/dL Conjugated Bilirubin (0.0-0.3) md/dL Unconjugated Bilirubin (0.0-1.1) mg/dL GGT (12-43) U/L AST (14-36) IU/L ALT (<35) IU/L Alkaline Phosphatase (38-126) U/L Total Creatine Kinase (30-135) U/L CK-MB (CK-2) CK-MB (CK-2) Rel Index Troponin I (0.01-0.034) ng/mL Total Protein (6.3-8.2) g/dL Albumin (3.5-5.0) g/dL Globulin (1.7-4.1) g/dL Albumin/Globulin Ratio (1.0-2.8) Lipase (23-300) U/L Urine Color Urine Appearance Urine pH (4.5-8.0) Ur Specific [place] (1.000-1.035) Urine Protein (Negative) Urine Glucose (UA) (Negative) g/dL Urine Ketones (NEGATIVE) Urine Occult Blood (Negative) Urine Nitrate (Negative) Urine Bilirubin (NEGATIVE) Ur Bilirubin Confirm (Negative) Urine Urobilinogen (0.2) E.U./dL Ur Leukocyte Esterase (NEGATIVE) Urine RBC (0-5/HPF) Urine WBC (0-5/HPF) Urine Bacteria (None) Ur Culture Indicated? Acetaminophen (10-30) ug/mL Ethyl Alcohol ( - 10) mg/dL SARS-CoV-2 (PCR) (Negative) 03/30/21 03/30/21 Range/Units 05:00 05:00 WBC (4.5-11.0) X10^3/uL RBC (4.0-5.2) X10^6/uL Hgb (12.0-16.0) g/dL Hct (36-46) % MCV (80-100) fL MCH (26-34) PG MCHC (30-36) % RDW (11.6-14.8) % Plt Count (150-400) X10^3/uL Neut % (Auto) Lymph % (Auto) [place] % (Auto) Eos % (Auto) Baso % (Auto) Lymph # (Auto) [place] # (Auto) Baso # (Auto) Total Counted Seg Neutrophils % (38-70) % Band Neutrophils % (3-7) % Lymphocytes % (Manual) (25-45) % Monocytes % (Manual) (2-11) % Neutrophils # (Manual) (9998-5193) /uL RBC Morphology Poikilocytosis Anisocytosis PT (10.1-12.7) SECONDS INR (0.9-1.3) APTT (26.4-36.2) SECONDS Sodium 126 L (137-145) mmol/L Potassium 3.8 (3.4-5.1) mmol/L Chloride 98 (98-107) mmol/L Carbon Dioxide 19 L (22-32) mmol/L BUN 53 H (7-17) mg/dL Creatinine 1.24 H (0.52-1.04) mg/dL Estimated GFR 43.5 L (>60) mL/min BUN/Creatinine Ratio 42.7 H (6-22) Glucose 122 H (80-110) mg/dL Lactate 2.3 H (0.7-2.1) mmol/L Calcium 8.0 L (8.4-10.2) mg/dL Total Bilirubin 2.1 H (0.2-1.3) mg/dL Conjugated Bilirubin (0.0-0.3) md/dL Unconjugated Bilirubin (0.0-1.1) mg/dL GGT (12-43) U/L AST 517 H (14-36) IU/L ALT 136 H (<35) IU/L Alkaline Phosphatase 1089 H (38-126) U/L Total Creatine Kinase 86 (30-135) U/L CK-MB (CK-2) TNP CK-MB (CK-2) Rel Index TNP Troponin I 0.945 H* (0.01-0.034) ng/mL Total Protein 5.2 L (6.3-8.2) g/dL Albumin 2.4 L (3.5-5.0) g/dL Globulin 2.8 (1.7-4.1) g/dL Albumin/Globulin Ratio 0.9 L (1.0-2.8) Lipase (23-300) U/L Urine Color Urine Appearance Urine pH (4.5-8.0) Ur Specific [place] (1.000-1.035) Urine Protein (Negative) Urine Glucose (UA) (Negative) g/dL Urine Ketones (NEGATIVE) Urine Occult Blood (Negative) Urine Nitrate (Negative) Urine Bilirubin (NEGATIVE) Ur Bilirubin Confirm (Negative) Urine Urobilinogen (0.2) E.U./dL Ur Leukocyte Esterase (NEGATIVE) Urine RBC (0-5/HPF) Urine WBC (0-5/HPF) Urine Bacteria (None) Ur Culture Indicated? Acetaminophen (10-30) ug/mL Ethyl Alcohol ( - 10) mg/dL SARS-CoV-2 (PCR) (Negative) Imaging Data US - abdomen: Radiologist's Impression: [address] [id number] ReportSigned Patient: Cornelia Liu LMR#: [id number]: 7Acct:[id number]/Sex: 65 / FDate of Service: 03/29/21Loc: EDAccession Number: [id number] Procedure: US abdomen limited Ordering Provider: Armin Navarro D.O. PROCEDURE: US ABDOMEN LIMITED INDICATIONS: JAUNDICE; RUQ PAIN TECHNIQUE: Real-time scanning was performed of the abdominal and retroperitoneal organs, with image documentation. COMPARISON: None. FINDINGS: Liver: Mildly enlarged measuring 18.7 cm in longest dimension. Several heterogeneous hypoechoic masses. Largest in the anterior right lobe of the liver measuring 6 x 5 x 5 cm. Gallbladder: Distended. Layering sludge. Possible small stone. Gallbladder wall is thickened measuring up to 0.6 cm in diameter. There is pericholecystic fluid. Positive sonographic Weaver's sign. Biliary ducts: No intrahepatic biliary ductal dilatation identified. CBD is not well evaluated. Pancreas: Heterogeneous mass lesion in the region of the head of the pancreas measuring 7.2 x 6.5 x 4.1 cm. There is internal vascularity. Miscellaneous: Small volume of free fluid in the right upper quadrant. IMPRESSION: 1. Mass suspected in the head of the pancreas. 2. Heterogeneous hypoechoic liver lesions. Suspect metastatic disease. 3. Distended gallbladder with gallbladder wall thickening and layering sludge. Pericholecystic fluid and positive Weaver's sign. Favor hydropic gallbladder secondary to adjacent malignancy. However, acute cholecystitis could have a similar appearance. Dictated by: Yassine Contreras M.D. on 03/29/2021 at 9:58 Approved by: Yassine Contreras M.D. on 03/29/2021 at 10:04 CT scan - abdomen/pelvis: Radiologist's Impression: [place] [id number] Scan ReportSigned Patient: Cornelia Liu LMR#: [id number]: 1955cct:[id number]/Sex: 65 / FDate of Service: 03/29/21Loc: EDAccession Number: [id number] Procedure: CT abdomen pelvis w con Ordering Provider: Armin Navarro D.O. PROCEDURE: CT ABDOMEN PELVIS W CON INDICATIONS: Left-sided abdominal pain TECHNIQUE: After the administration of oral and IV contrast, axial sections were acquired from the lung bases to the pubic symphysis. Coronal and sagittal reformats were performed. For radiation dose reduction, the following was used: automated exposure control, adjustment of mA and/or kV according to patient size. COMPARISON: [facility], , ABDOMEN LIMITED, 03/29/2021, 10:27. FINDINGS: Image quality: Excellent. Lung bases: No pleural effusion. Punctate nodule in the right lower lobe measuring 0.2 cm is likely a calcified granuloma. Heart: Small right and midline pericardial nodules. Trace pericardial fluid. Paraesophageal nodule with central hypodensity measuring 2.6 x 2.2 cm, (2/8). ABDOMEN: Liver: Multiple irregular hypodense hepatic lesions. For example: -inferior right lobe measures 6.3 x 3.8 cm, (2/32). -superior right lobe confluent lesion measuring at 6.8 x 6.7 cm, (2/10). Additional small lesions. Liver enhances heterogeneously. Liver is enlarged. Gallbladder: Dilated gallbladder. Trace pericholecystic fluid. Possible tiny calcified gallstone, (2/40). Biliary ducts: Left intrahepatic bile duct is prominent measuring at 0.7 cm, (2/21). The CBD is obscured. Pancreas: Hypodensity in the head of the pancreas. The pancreatic duct does not appear dilated. At the brianne hepatis and likely anterior to the pancreas there is confluent adenopathy with central hypodensity measuring 7.4 x 4.6 cm, (2/23). This measures 7.5 cm in craniocaudal dimension, (4/20). Spleen: No splenomegaly. Adrenal Glands: Minimal thickening of the left adrenal gland. Kidneys and Ureters: No hydronephrosis. No solid renal mass. Small hypodensity in the inferior pole of the left kidney. Stomach and Bowel: Stomach is prominent. There is no small bowel obstruction. The small bowel in the left abdomen demonstrates mild thickening, (2/41). A few colonic diverticuli. The appendix is not seen. Peritoneum: Moderate volume of ascites. No free air. Ventral Wall: No hernia. Abdominal Nodes: Prominent left periaortic node measuring 0.9 cm, (2/31). Shotty appearing retroperitoneal nodes. Suspect portal adenopathy as described above. Vessels: Aorta and inferior vena cava are normal in size. Extensive calcified atherosclerotic plaque. Portal vein appears attenuated. Intrahepatic periporta l edema. PELVIS: Pelvic Organs: Uterus is within normal limits. Bladder: Distended. Pelvic Nodes: No enlarged lymph nodes. Miscellaneous: No inguinal hernias are seen. Bones: No suspicious lesions seen. Grade 1 anterolisthesis of L4 on L5. DDD. IMPRESSION: 1. Multiple irregular hypodense lesions in the liver consistent with metastatic disease. 2. Confluent adenopathy at the brianne hepatis with central necrosis is suspected. Alternatively, this could represent a large exophytic pancreatic adenocarcinoma. 3. Hydropic gallbladder. 4. Enlarged necrotic paraesophageal lymph node. Small pericardiac nodes. Small retroperitoneal nodes. 5. Mild prominence of the left intrahepatic bile duct. CBD is obscured. 6. Moderate ascites. Dictated by: Yassine Contreras M.D. on 03/29/2021 at 10:39 Approved by: Yassine Contreras M.D. on 03/29/2021 at 11:03 Chest x-ray: Radiologist's Impression: [address] [address] XRay Report Signed Patient: Cornelia Liu MR#: [id number] : 1955 Acct:[id number] Age/Sex: 65 / F Date of Service: 03/29/21 Loc: ED Accession Number: [id number] ?? Procedure: XR chest 1V Ordering Provider: Armin Navarro D.O. PROCEDURE:? XR CHEST 1V ? INDICATIONS:? elevated troponin ? TECHNIQUE:? One view of the chest was acquired.? ? COMPARISON:? [facility], CT, CT ABDOMEN PELVIS W CON, 03/29/2021, 11:05. ? FINDINGS:? ? Surgical changes and devices:? None.? ? Lungs and pleura:? Ill-defined irregular opacity in the right upper lobe.? No pleural effusions or pneumothorax.? ? Mediastinum:? Mediastinal contours appear normal.? Aortic arch atherosclerotic calcifications.? Heart size is within normal limits.? ? Bones and chest wall:? No suspicious bony lesions.? Overlying soft tissues appear unremarkable.? ? IMPRESSION:? Concern for right upper lobe pulmonary nodule.? This could be further characterized with CT of the chest.? ? ? Dictated by: Yassine Contreras M.D. on 03/29/2021 at 16:01 ? ? Approved by: Yassine Contreras M.D. on 03/29/2021 at 16:05? ECG Data Attestation: I personally reviewed and interpreted this ECG as follows: Interpretation: Sinus rhythm Ventricular rate 91 Normal axis Normal QRS Normal QTC Inverted T-waves V4 V5 V6 Repeat EKG 1. Sinus rhythm Ventricular rate 91 Normal axis Inverted T-waves V4 V5 V6 Very similar appearance to presentation EKG Repeat EKG number 2 Sinus rhythm Ventricular rate 90 Normal axis Normal QRS QTC 5 1 Inverted T-waves V4 V5 V6 now inverted T-waves V3 More prominent inverted T-wave lead 2 MDM Narrative Medical decision making narrative: 65-year-old female without any diagnosed medical problems. Does report that she drinks on a daily basis. Takes no medications. No allergies. Apparently the symptoms that she presented with today have been going on for at least the past several days if not weeks but worsening over the past 24 hours. Patient is jaundiced. Has generalized abdominal discomfort. Given her presentation and her leukocytosis and elevated lactate she was given antibiotics. Blood cultures were obtained. Ultrasound of her abdomen the CT scan of her abdomen concern for metastatic disease. Does also appear that she has a distended gallbladder. Her bilirubin is elevated. Patient has inverted T-waves laterally on her EKG. Initial troponin elevated. Second troponin higher. Third troponin pending. EKGs have been relatively unchanged. She did have 1 episode when she got up to use the bedside commode when she returned to the bed became somewhat unresponsive. She was breathing on her own. Was hypotensive. After short period time she recovered from this. I do suspect that this was a vagal reaction. Patient does require transfer for higher level of care to include a facility that has GI, surgery, Cardiology, Oncology and potentially ICU. We attempted to contact multiple facilities in [facility] and there was no bed availability. We also contacted the [facility] who also stated there were no tele beds available in [facility]. I did discuss the case with Dr. Belcher on-call for General surgery who stated that there was no emergent surgical issue. She nee ded transfer for ERCP and biopsy and most likely stent placement. I also discussed the case with Dr. Newberry with Cardiology given her elevated troponin. He did review her EKGs. He agree that that was a nonspecific changes. He stated that the elevated troponin could be any number things to include her presenting symptoms. He recommended trending the troponins and if they continue to elevate then consider starting her on heparin. She was given an aspirin. I did discuss all this with the patient and her sister at bedside. The patient is full code. Care turned over to Dr. Smalls to continue to monitor and disposition until bed availability becomes available. Prior to turned over I did discuss the case with the hospitalist at [facility]. He agreed with the above plan. And will accept in transfer. <Ladonna Smalls, DO - Last Filed: 03/30/21 06:29> Lab Data Labs: Lab Results 03/29/21 03/29/21 03/29/21 Range/Units 10:00 10:00 10:00 WBC 33.9 H* (4.5-11.0) X10^3/uL RBC 3.05 L (4.0-5.2) X10^6/uL Hgb 9.1 L (12.0-16.0) g/dL Hct 27.0 L (36-46) % MCV 88.5 (80-100) fL MCH 29.7 (26-34) PG MCHC 33.5 (30-36) % RDW 15.2 H (11.6-14.8) % Plt Count 670 H (150-400) X10^3/uL Neut % (Auto) Not Reportable Lymph % (Auto) Not Reportable [place] % (Auto) Not Reportable Eos % (Auto) Not Reportable Baso % (Auto) Not Reportable Lymph # (Auto) Not Reportable [place] # (Auto) Not Reportable Baso # (Auto) Not Reportable Total Counted 100 Seg Neutrophils % 94.0 H (38-70) % Band Neutrophils % 2.0 L (3-7) % Lymphocytes % (Manual) 3.0 L (25-45) % Monocytes % (Manual) 1.0 L (2-11) % Neutrophils # (Manual) 93776 H (8429-5777) /uL RBC Morphology Not Reportable Poikilocytosis 1+ H Anisocytosis 2+ H PT (10.1-12.7) SECONDS INR (0.9-1.3) APTT (26.4-36.2) SECONDS Sodium 122 L (137-145) mmol/L Potassium 3.7 (3.4-5.1) mmol/L Chloride 86 L (98-107) mmol/L Carbon Dioxide 24 (22-32) mmol/L BUN 40 H (7-17) mg/dL Creatinine 0.69 (0.52-1.04) mg/dL Estimated GFR > 60.0 (>60) mL/min BUN/Creatinine Ratio 58.0 H (6-22) Glucose 169 H (80-110) mg/dL Lactate 2.8 H (0.7-2.1) mmol/L Calcium 10.1 (8.4-10.2) mg/dL Total Bilirubin 3.8 H (0.2-1.3) mg/dL Conjugated Bilirubin 0.9 H (0.0-0.3) md/dL Unconjugated Bilirubin 0.8 (0.0-1.1) mg/dL GGT (12-43) U/L AST 104 H (14-36) IU/L ALT 99 H (<35) IU/L Alkaline Phosphatase 1915 H (38-126) U/L Total Creatine Kinase (30-135) U/L CK-MB (CK-2) CK-MB (CK-2) Rel Index Troponin I (0.01-0.034) ng/mL Total Protein 7.3 (6.3-8.2) g/dL Albumin 3.7 (3.5-5.0) g/dL Globulin 3.6 (1.7-4.1) g/dL Albumin/Globulin Ratio 1.0 (1.0-2.8) Lipase 21 L (23-300) U/L Urine Color Urine Appearance Urine pH (4.5-8.0) Ur Specific [place] (1.000-1.035) Urine Protein (Negative) Urine Glucose (UA) (Negative) g/dL Urine Ketones (NEGATIVE) Urine Occult Blood (Negative) Urine Nitrate (Negative) Urine Bilirubin (NEGATIVE) Ur Bilirubin Confirm (Negative) Urine Urobilinogen (0.2) E.U./dL Ur Leukocyte Esterase (NEGATIVE) Urine RBC (0-5/HPF) Urine WBC (0-5/HPF) Urine Bacteria (None) Ur Culture Indicated? Acetaminophen < 10 L (10-30) ug/mL Ethyl Alcohol < 10 ( - 10) mg/dL SARS-CoV-2 (PCR) (Negative) 03/29/21 03/29/21 03/29/21 Range/Units 10:00 10:00 10:45 WBC (4.5-11.0) X10^3/uL RBC (4.0-5.2) X10^6/uL Hgb (12.0-16.0) g/dL Hct (36-46) % MCV (80-100) fL MCH (26-34) PG MCHC (30-36) % RDW (11.6-14.8) % Plt Count (150-400) X10^3/uL Neut % (Auto) Lymph % (Auto) [place] % (Auto) Eos % (Auto) Baso % (Auto) Lymph # (Auto) [place] # (Auto) Baso # (Auto) Total Counted Seg Neutrophils % (38-70) % Band Neutrophils % (3-7) % Lymphocytes % (Manual) (25-45) % Monocytes % (Manual) (2-11) % Neutrophils # (Manual) (9288-8662) /uL RBC Morphology Poikilocytosis Anisocytosis PT (10.1-12.7) SECONDS INR (0.9-1.3) APTT (26.4-36.2) SECONDS Sodium (137-145) mmol/L Potassium (3.4-5.1) mmol/L Chloride (98-107) mmol/L Carbon Dioxide (22-32) mmol/L BUN (7-17) mg/dL Creatinine (0.52-1.04) mg/dL Estimated GFR (>60) mL/min BUN/Creatinine Ratio (6-22) Glucose (80-110) mg/dL Lactate (0.7-2.1) mmol/L Calcium (8.4-10.2) mg/dL Total Bilirubin (0.2-1.3) mg/dL Conjugated Bilirubin (0.0-0.3) md/dL Unconjugated Bilirubin (0.0-1.1) mg/dL GGT 891 H (12-43) U/L AST (14-36) IU/L ALT (<35) IU/L Alkaline Phosphatase (38-126) U/L Total Creatine Kinase 25 L (30-135) U/L CK-MB (CK-2) TNP CK-MB (CK-2) Rel Index TNP Troponin I 0.387 H* (0.01-0.034) ng/mL Total Protein (6.3-8.2) g/dL Albumin (3.5-5.0) g/dL Globulin (1.7-4.1) g/dL Albumin/Globulin Ratio (1.0-2.8) Lipase (23-300) U/L Urine Color Urine Appearance Urine pH (4.5-8.0) Ur Specific [place] (1.000-1.035) Urine Protein (Negative) Urine Glucose (UA) (Negative) g/dL Urine Ketones (NEGATIVE) Urine Occult Blood (Negative) Urine Nitrate (Negative) Urine Bilirubin (NEGATIVE) Ur Bilirubin Confirm (Negative) Urine Urobilinogen (0.2) E.U./dL Ur Leukocyte Esterase (NEGATIVE) Urine RBC (0-5/HPF) Urine WBC (0-5/HPF) Urine Bacteria (None) Ur Culture Indicated? Acetaminophen (10-30) ug/mL Ethyl Alcohol ( - 10) mg/dL SARS-CoV-2 (PCR) Negative (Negative) 03/29/21 03/29/21 03/29/21 Range/Units 12:16 12:40 14:24 WBC (4.5-11.0) X10^3/uL RBC (4.0-5.2) X10^6/uL Hgb (12.0-16.0) g/dL Hct (36-46) % MCV (80-100) fL MCH (26-34) PG MCHC (30-36) % RDW (11.6-14.8) % Plt Count (150-400) X10^3/uL Neut % (Auto) Lymph % (Auto) [place] % (Auto) Eos % (Auto) Baso % (Auto) Lymph # (Auto) [place] # (Auto) Baso # (Auto) Total Counted Seg Neutrophils % (38-70) % Band Neutrophils % (3-7) % Lymphocytes % (Manual) (25-45) % Monocytes % (Manual) (2-11) % Neutrophils # (Manual) (4738-3743) /uL RBC Morphology Poikilocytosis Anisocytosis PT (10.1-12.7) SECONDS INR (0.9-1.3) APTT (26.4-36.2) SECONDS Sodium (137-145) mmol/L Potassium (3.4-5.1) mmol/L Chloride (98-107) mmol/L Carbon Dioxide (22-32) mmol/L BUN (7-17) mg/dL Creatinine (0.52-1.04) mg/dL Estimated GFR (>60) mL/min BUN/Creatinine Ratio (6-22) Glucose (80-110) mg/dL Lactate 2.4 H (0.7-2.1) mmol/L Calcium (8.4-10.2) mg/dL Total Bilirubin (0.2-1.3) mg/dL Conjugated Bilirubin (0.0-0.3) md/dL Unconjugated Bilirubin (0.0-1.1) mg/dL GGT (12-43) U/L AST (14-36) IU/L ALT (<35) IU/L Alkaline Phosphatase (38-126) U/L Total Creatine Kinase 32 (30-135) U/L CK-MB (CK-2) TNP CK-MB (CK-2) Rel Index TNP Troponin I 0.779 H* (0.01-0.034) ng/mL Total Protein (6.3-8.2) g/dL Albumin (3.5-5.0) g/dL Globulin (1.7-4.1) g/dL Albumin/Globulin Ratio (1.0-2.8) Lipase (23-300) U/L Urine Color Yellow Urine Appearance Clear Urine pH 6.5 (4.5-8.0) Ur Specific [place] <=1.005 (1.000-1.035) Urine Protein 1+ H (Negative) Urine Glucose (UA) Trace H (Negative) g/dL Urine Ketones Trace H (NEGATIVE) Urine Occult Blood Trace-lysed (Negative) Urine Nitrate Negative (Negative) Urine Bilirubin 2+ H (NEGATIVE) Ur Bilirubin Confirm Positive H (Negative) Urine Urobilinogen 0.2 (0.2) E.U./dL Ur Leukocyte Esterase 2+ H (NEGATIVE) Urine RBC 0-1/hpf (0-5/HPF) Urine WBC 5-10/hpf H (0-5/HPF) Urine Bacteria None seen (None) Ur Culture Indicated? Specimen cultured Acetaminophen (10-30) ug/mL Ethyl Alcohol ( - 10) mg/dL SARS-CoV-2 (PCR) (Negative) 03/29/21 03/29/21 03/29/21 Range/Units 18:12 18:12 22:05 WBC (4.5-11.0) X10^3/uL RBC (4.0-5.2) X10^6/uL Hgb (12.0-16.0) g/dL Hct (36-46) % MCV (80-100) fL MCH (26-34) PG MCHC (30-36) % RDW (11.6-14.8) % Plt Count (150-400) X10^3/uL Neut % (Auto) Lymph % (Auto) [place] % (Auto) Eos % (Auto) Baso % (Auto) Lymph # (Auto) [place] # (Auto) Baso # (Auto) Total Counted Seg Neutrophils % (38-70) % Band Neutrophils % (3-7) % Lymphocytes % (Manual) (25-45) % Monocytes % (Manual) (2-11) % Neutrophils # (Manual) (0229-7821) /uL RBC Morphology Poikilocytosis Anisocytosis PT 84.6 H (10.1-12.7) SECONDS INR 7.2 H* (0.9-1.3) APTT 55 H (26.4-36.2) SECONDS Sodium (137-145) mmol/L Potassium (3.4-5.1) mmol/L Chloride (98-107) mmol/L Carbon Dioxide (22-32) mmol/L BUN (7-17) mg/dL Creatinine (0.52-1.04) mg/dL Estimated GFR (>60) mL/min BUN/Creatinine Ratio (6-22) Glucose (80-110) mg/dL Lactate 4.9 H* (0.7-2.1) mmol/L Calcium (8.4-10.2) mg/dL Total Bilirubin (0.2-1.3) mg/dL Conjugated Bilirubin (0.0-0.3) md/dL Unconjugated Bilirubin (0.0-1.1) mg/dL GGT (12-43) U/L AST (14-36) IU/L ALT (<35) IU/L Alkaline Phosphatase (38-126) U/L Total Creatine Kinase 23 L (30-135) U/L CK-MB (CK-2) TNP CK-MB (CK-2) Rel Index TNP Troponin I 1.160 H* (0.01-0.034) ng/mL Total Protein (6.3-8.2) g/dL Albumin (3.5-5.0) g/dL Globulin (1.7-4.1) g/dL Albumin/Globulin Ratio (1.0-2.8) Lipase (23-300) U/L Urine Color Urine Appearance Urine pH (4.5-8.0) Ur Specific [place] (1.000-1.035) Urine Protein (Negative) Urine Glucose (UA) (Negative) g/dL Urine Ketones (NEGATIVE) Urine Occult Blood (Negative) Urine Nitrate (Negative) Urine Bilirubin (NEGATIVE) Ur Bilirubin Confirm (Negative) Urine Urobilinogen (0.2) E.U./dL Ur Leukocyte Esterase (NEGATIVE) Urine RBC (0-5/HPF) Urine WBC (0-5/HPF) Urine Bacteria (None) Ur Culture Indicated? Acetaminophen (10-30) ug/mL Ethyl Alcohol ( - 10) mg/dL SARS-CoV-2 (PCR) (Negative) 03/30/21 03/30/21 03/30/21 Range/Units 00:14 02:25 05:00 WBC 33.0 H* (4.5-11.0) X10^3/uL RBC 2.41 L (4.0-5.2) X10^6/uL Hgb 7.0 L (12.0-16.0) g/dL Hct 21.6 L (36-46) % MCV 89.8 (80-100) fL MCH 29.2 (26-34) PG MCHC 32.6 (30-36) % RDW 15.9 H (11.6-14.8) % Plt Count 495 H (150-400) X10^3/uL Neut % (Auto) Not Reportable Lymph % (Auto) Not Reportable [place] % (Auto) Not Reportable Eos % (Auto) Not Reportable Baso % (Auto) Not Reportable Lymph # (Auto) Not Reportable [place] # (Auto) Not Reportable Baso # (Auto) Not Reportable Total Counted 100 Seg Neutrophils % 82.0 H (38-70) % Band Neutrophils % 7.0 (3-7) % Lymphocytes % (Manual) 10.0 L (25-45) % Monocytes % (Manual) 1.0 L (2-11) % Neutrophils # (Manual) 88945 H (0110-8022) /uL RBC Morphology See below Poikilocytosis Anisocytosis 1+ H PT (10.1-12.7) SECONDS INR (0.9-1.3) APTT (26.4-36.2) SECONDS Sodium (137-145) mmol/L Potassium (3.4-5.1) mmol/L Chloride (98-107) mmol/L Carbon Dioxide (22-32) mmol/L BUN (7-17) mg/dL Creatinine (0.52-1.04) mg/dL Estimated GFR (>60) mL/min BUN/Creatinine Ratio (6-22) Glucose (80-110) mg/dL Lactate 2.5 H 2.4 H (0.7-2.1) mmol/L Calcium (8.4-10.2) mg/dL Total Bilirubin (0.2-1.3) mg/dL Conjugated Bilirubin (0.0-0.3) md/dL Unconjugated Bilirubin (0.0-1.1) mg/dL GGT (12-43) U/L AST (14-36) IU/L ALT (<35) IU/L Alkaline Phosphatase (38-126) U/L Total Creatine Kinase (30-135) U/L CK-MB (CK-2) CK-MB (CK-2) Rel Index Troponin I (0.01-0.034) ng/mL Total Protein (6.3-8.2) g/dL Albumin (3.5-5.0) g/dL Globulin (1.7-4.1) g/dL Albumin/Globulin Ratio (1.0-2.8) Lipase (23-300) U/L Urine Color Urine Appearance Urine pH (4.5-8.0) Ur Specific [place] (1.000-1.035) Urine Protein (Negative) Urine Glucose (UA) (Negative) g/dL Urine Ketones (NEGATIVE) Urine Occult Blood (Negative) Urine Nitrate (Negative) Urine Bilirubin (NEGATIVE) Ur Bilirubin Confirm (Negative) Urine Urobilinogen (0.2) E.U./dL Ur Leukocyte Esterase (NEGATIVE) Urine RBC (0-5/HPF) Urine WBC (0-5/HPF) Urine Bacteria (None) Ur Culture Indicated? Acetaminophen (10-30) ug/mL Ethyl Alcohol ( - 10) mg/dL SARS-CoV-2 (PCR) (Negative) 03/30/21 03/30/21 Range/Units 05:00 05:00 WBC (4.5-11.0) X10^3/uL RBC (4.0-5.2) X10^6/uL Hgb (12.0-16.0) g/dL Hct (36-46) % MCV (80-100) fL MCH (26-34) PG MCHC (30-36) % RDW (11.6-14.8) % Plt Count (150-400) X10^3/uL Neut % (Auto) Lymph % (Auto) [place] % (Auto) Eos % (Auto) Baso % (Auto) Lymph # (Auto) [place] # (Auto) Baso # (Auto) Total Counted Seg Neutrophils % (38-70) % Band Neutrophils % (3-7) % Lymphocytes % (Manual) (25-45) % Monocytes % (Manual) (2-11) % Neutrophils # (Manual) (2131-9371) /uL RBC Morphology Poikilocytosis Anisocytosis PT (10.1-12.7) SECONDS INR (0.9-1.3) APTT (26.4-36.2) SECONDS Sodium 126 L (137-145) mmol/L Potassium 3.8 (3.4-5.1) mmol/L Chloride 98 (98-107) mmol/L Carbon Dioxide 19 L (22-32) mmol/L BUN 53 H (7-17) mg/dL Creatinine 1.24 H (0.52-1.04) mg/dL Estimated GFR 43.5 L (>60) mL/min BUN/Creatinine Ratio 42.7 H (6-22) Glucose 122 H (80-110) mg/dL Lactate 2.3 H (0.7-2.1) mmol/L Calcium 8.0 L (8.4-10.2) mg/dL Total Bilirubin 2.1 H (0.2-1.3) mg/dL Conjugated Bilirubin (0.0-0.3) md/dL Unconjugated Bilirubin (0.0-1.1) mg/dL GGT (12-43) U/L AST 517 H (14-36) IU/L ALT 136 H (<35) IU/L Alkaline Phosphatase 1089 H (38-126) U/L Total Creatine Kinase 86 (30-135) U/L CK-MB (CK-2) TNP CK-MB (CK-2) Rel Index TNP Troponin I 0.945 H* (0.01-0.034) ng/mL Total Protein 5.2 L (6.3-8.2) g/dL Albumin 2.4 L (3.5-5.0) g/dL Globulin 2.8 (1.7-4.1) g/dL Albumin/Globulin Ratio 0.9 L (1.0-2.8) Lipase (23-300) U/L Urine Color Urine Appearance Urine pH (4.5-8.0) Ur Specific [place] (1.000-1.035) Urine Protein (Negative) Urine Glucose (UA) (Negative) g/dL Urine Ketones (NEGATIVE) Urine Occult Blood (Negative) Urine Nitrate (Negative) Urine Bilirubin (NEGATIVE) Ur Bilirubin Confirm (Negative) Urine Urobilinogen (0.2) E.U./dL Ur Leukocyte Esterase (NEGATIVE) Urine RBC (0-5/HPF) Urine WBC (0-5/HPF) Urine Bacteria (None) Ur Culture Indicated? Acetaminophen (10-30) ug/mL Ethyl Alcohol ( - 10) mg/dL SARS-CoV-2 (PCR) (Negative) Imaging Data CT scan - head: Radiologist's Impression: PROCEDURE:? CT HEAD/BRAIN WO CON ? INDICATIONS:? possible seizure ? TECHNIQUE:? Noncontrast 4.5 mm thick angled axial sections acquired from the foramen magnum to the vertex, with coronal and sagittal reformats.? For radiation dose reduction, the following was used:? automated exposure control, adjustment of mA and/or kV according to patient size.? ? COMPARISON:? None. ? FINDINGS:? Image quality:? Excellent.? ? CSF spaces:? Basal cisterns are patent.? No extra-axial fluid collections.? The ventricles are symmetric in size and shape.? ? Brain:? No intracranial bleeds or masses.? There is cerebral volume loss for age, with resultant ventricular and sulcal prominence.? There are periventricular and deep white matter chronic small vessel ischemic changes.? There is intracranial internal carotid artery atherosclerosis.? ? Skull and face:? Calvarium and visualized facial bones appear intact, without suspicious lesions.? ? Sinuses:? Visualized sinuses and mastoids are clear.? ? IMPRESSION:? No acute intracranial process. ? Dictated by: Lawrence Toney M.D. on 03/29/2021 at 19:24 ? ? MDM Narrative Medical decision making narrative: 65-year-old female without any diagnosed medical problems. Does report that she drinks on a daily basis. Takes no medications. No allergies. Apparently the symptoms that she presented with today have been going on for at least the past several days if not weeks but worsening over the past 24 hours. Patient is jaundiced. Has generalized abdominal discomfort. Given her presentation and her leukocytosis and elevated lactate she was given antibiotics. Blood cultures were obtained. Ultrasound of her abdomen the CT scan of her abdomen concern for metastatic disease. Does also appear that she has a distended gallbladder. Her bilirubin is elevated. Patient has inverted T-waves laterally on her EKG. Initial troponin elevated. Second troponin higher. Third troponin pending. EKGs have been relatively unchanged. She did have 1 episode when she got up to use the bedside commode when she returned to the bed became somewhat unresponsive. She was breathing on her own. Was hypotensive. After short period time she recovered from this. I do suspect that this was a vagal reaction. Patient does require transfer for higher level of care to include a facility that has GI, surgery, Cardiology, Oncology and potentially ICU. We attempted to contact multiple facilities in [facility] and there was no bed availability. We also contacted the [facility] who also stated there were no tele beds available in [facility]. I did discuss the case with Dr. Belcher on-call for General surgery who stated that there was no emergent surgical issue. She needed transfer for ERCP and biopsy and most likely stent placement. I also discussed the case with Dr. Newberry with Cardiology given her elevated troponin. He did review her EKGs. He agree that that was a nonspecific changes. He stated that the elevated troponin could be any number things to include her pres enting symptoms. He recommended trending the troponins and if they continue to elevate then consider starting her on heparin. She was given an aspirin. I did discuss all this with the patient and her sister at bedside. The patient is full code. Care turned over to Dr. Smalls to continue to monitor and disposition until bed availability becomes available. Prior to turned over I did discuss the case with the hospitalist at [facility]. He agreed with the above plan. And will accept in transfer. BEVERLY 03/29/21 7pm I have received sign-out from Dr. Navarro. Exceeded evaluated patient initial blood pressure in the 50s it does improve with 1 L of fluids to 70s and 80s. She is clammy. Has episodes of intermittent decreased consciousness. Difficult to get continuous oxygenation on her due to peripheral face of constriction. Blood pressure is improving with fluids however troponin is also rising. Attempted right IJ however unsuccessful, transport was also going to be here quickly after the attempt and she is overall stable. Head CT is negative. Unfortunately patient's blood pressure is decreased [facility] states she is no longer acceptable for a [facility] bed which I agree. She continues to look as though she has some poor perfusion 2144-Dr. Navarro hospitalist in [place] states he recommends fluids repeat lactate and then re-evaluation if blood pressure improves with more aggressive fluid hydration and lactate remains the same possibly able to still transfer. Discussed heparin drip however INR 7 to both agree not to start heparin Patient is given more fluids blood pressure does improve into the 90s., however repeat lactate was 4.5. She is continued to get fluid resuscitated blood pressure then starts to decrease back into the 80s. At which point Levophed is started, in right femoral. Blood pressure is a been reviewed throughout the day. Initially was normotensive and then there was a transient low and quickly increased back to normal. blood pressure at 6:44 p.m. dropped to 54/35, and then responded to some fluids. From that point on blood pressure remained systolic below 90 pre persistently in the 80s. However slightly careful due to rising troponin concern for possible CHF, and ascites. However she seems to be tolerating it. Map is have a ring between 60 and 65. Blood pressure decreased again into the 50s for a brief moment at that point Levophed is started 0130-nursing informed me that she has not urinated Rivero catheter has not been placed. Rivero catheter is now in place to monitor strict urinary output. Now has about 200 hours She is on the list at [facility] On list at 0230-Dr. Warren at [place] updated on signs and symptoms, happily accepts patient. Patient responding well to Levophed and titrating down. Continues to get IV fluids no significant change in respiratory status 0515 now on 1mcg/min, maintaining map what exactly 65. Morning blood work is pending. Hemoglobin 7 and hematocrit 21. Likely diluted from aggressive fluid resuscitation. Critical Care Time <Armin Navarro, - Last Filed: 03/30/21 06:57> Critical Care Time Critical Care Time: Yes Total Critical Care Time: 50 Attestation: The high probability of a clinically significant, sudden or life threatening deterioration of the cardiovascular, GI, endocrine, system(s) required my full and direct attention, intervention and personal management. The aggregate critical care time was 50 minutes. This time is in addition to time spent perfor don reported procedures but includes the following: [x] Data Review and interpretation [x] Patient assessment and monitoring of vital signs [x] Documentation [x] Medication orders and management <Ladonna Smalls, - Last Filed: 03/30/21 06:29> Critical Care Time Total Critical Care Time: 120 Attestation: The high probability of a clinically significant, sudden or life threatening deterioration of the cardiovascular, GI, endocrine, system(s) required my full a nd direct attention, intervention and personal management. The aggregate critical care time was 120 minutes. This time is in addition to time spent performing reported procedures but includes the following: [x] Data Review and interpretation [x] Patient assessment and monitoring of vital signs [x] Documentation [x] Medication orders and management Discharge Plan Departure Patient Disposition: [facility] Clinical Impression: Hyponatremia, Hyperbilirubinemia, Adenocarcinoma of pancreas, Elevated troponin, Leukocytosis, Septic shock Referrals: *Temp,ED* [Primary Care Provider] -
[2021-03-29 10:13] LABS: Hemoglobin 9.1 g/dL (12.0-16.0); Mean Corpuscular HGB Conc 33.5 % (30-36); Mean Corpuscular Hemoglobin 29.7 PG (26-34); Mean Corpuscular Volume 88.5 fL (80-100); Platelet Count 670 X10^3/uL (150-400); Red Blood Cell Count 3.05 X10^6/uL (4.0-5.2); Red Cell Distribution Width 15.2 % (11.6-14.8)
[2021-03-29 10:16] LABS: Add Manual Diff / Slide Review YES; White Blood Cell Count 33.9 X10^3/uL (4.5-11.0)
[2021-03-29] MEDS: MORPHINE 4 MG/ML INJ IV (10:21)
[2021-03-29 10:22] LABS: Lactate (Lactic Acid) 2.8 mmol/L (0.7-2.1)
[2021-03-29 10:23] LABS: Creatine Kinase 25 U/L (30-135); Gamma Glutamyl Transpeptidase 891 U/L (12-43)
[2021-03-29 10:24] LABS: Acetaminophen < 10 ug/mL (10-30); Alanine Aminotransferase 99 IU/L (<35); Albumin 3.7 g/dL (3.5-5.0); Aspartate Aminotransferase 104 IU/L (14-36); Bilirubin Conjugated 0.9 md/dL (0.0-0.3); Bilirubin Total 3.8 mg/dL (0.2-1.3); Bilirubin Unconjugated 0.8 mg/dL (0.0-1.1); Blood Urea Nitrogen 40 mg/dL (7-17); Calcium 10.1 mg/dL (8.4-10.2); Carbon Dioxide 24 mmol/L (22-32); Chloride 86 mmol/L (98-107); Estimated Glomerular Filt Rate > 60.0 mL/min (>60); Ethanol (ETOH) < 10 mg/dL; Globulin 3.6 g/dL (1.7-4.1); Glucose 169 mg/dL (80-110); HEMOLYSIS 29 (0-50); Lipase 21 U/L (23-300); Potassium 3.7 mmol/L (3.4-5.1); Sodium 122 mmol/L (137-145); Total Protein 7.3 g/dL (6.3-8.2)
[2021-03-29 10:27] LABS: Anisocytosis 2+; Neutrophils Absolute Manual 32544 /uL (3000-5900); Poikilocytosis 1+; Total Cells Counted 100
[2021-03-29 10:30] LABS: Alkaline Phosphatase 1915 U/L (38-126)
[2021-03-29 10:58] LABS: Troponin I 0.387 ng/mL (0.01-0.034)
[2021-03-29] MEDS: ASPIRIN 325 MG TABLET PO (11:30)
[2021-03-29] MEDS: metroNIDAZOLE 500 MG/100 ML PIGGYBACK 100 MG IV (11:30)
[2021-03-29] MEDS: cefTRIAXone 1,000 MG in SODIUM CHLORIDE 0.9% 100 ML 200 ML IV (11:31)
[2021-03-29 11:48] LABS: COVID19 - ADMIT (NP swab/PCR) Negative (Negative)
[2021-03-29 12:06] LABS: Reflexed Lactate in 2 Hours Y
[2021-03-29 12:31] LABS: Lactate 2HR (Lactic Acid Rflx) 2.4 mmol/L (0.7-2.1)
[2021-03-29] MEDS: SODIUM CHLORIDE 0.9% 1,000 ML 1000 ML IV (12:45)
--- NOTE | 2021-03-29 12:49 | PC.NURSE ---
This PROFESSOR OF BIBLICAL STUDIES walked in to patient's room to assist patient off of the bedside commode. As this PROFESSOR OF BIBLICAL STUDIES walked in, assisted patient to the floor. No wounds noted. Asked patient what happened, patient did not respond, asked staff for assistance. RN and PROFESSOR OF BIBLICAL STUDIES assisted with patient to bed and incontinent care, placed back on monitor, doctor at bedside.
[2021-03-29 13:21] LABS: Bacteria Urine None Seen
[2021-03-29 13:23] LABS: Appearance Urine UA CLEAR; Bilirubin Urine UA 2+ (NEGATIVE); Color Urine UA YELLOW; Glucose Urine UA TRACE g/dL (Negative); Ketones Urine UA TRACE (NEGATIVE); Leukocyte Esterase Urine UA 2+ (NEGATIVE); Nitrite Urine UA NEGATIVE (Negative); Occult Blood Urine UA TRACE-LYSED (Negative); Protein Urine UA 1+ (Negative); Specific Gravity Urine UA <=1.005 (1.000-1.035); Urobilinogen Urine UA 0.2 E.U./dL (0.2)
[2021-03-29 13:25] LABS: pH Urine UA 6.5 (4.5-8.0)
[2021-03-29 13:37] LABS: Culture Indicated Urine Specimen Cultured; RBC Urine 0-1/HPF (0-5/HPF); WBC Urine 5-10/HPF (0-5/HPF)
[2021-03-29] MEDS: MORPHINE 2 MG/ML INJ IV (13:45)
[2021-03-29 13:56] LABS: Ictotest Urine Positive (Negative)
[2021-03-29 14:45] LABS: Creatine Kinase 32 U/L (30-135)
--- NOTE | 2021-03-29 15:15 | PC.NURSE ---
Pt's sister at bedside expresses concern about the pt's daily drinking and potential for withdrawal now that she is in the hospital. CIWA assessments added to this pt's plan of care. She denies ever having experienced serious withdrawal or seizures, but does state she had tremors the other night at home. Pt is calm and still at this time, remains cool, clammy, and diaphoretic, but not notably tremulous. See CIWA assessment in record.
[2021-03-29 15:30] LABS: Troponin I 0.779 ng/mL (0.01-0.034)
--- NOTE | 2021-03-29 16:15 | DI.RAD.S_ITS ---
PROCEDURE: XR CHEST 1V INDICATIONS: elevated troponin TECHNIQUE: One view of the chest was acquired. COMPARISON: [facility], CT, CT ABDOMEN PELVIS W CON, 03/29/2021, 11:05. FINDINGS: Surgical changes and devices: None. Lungs and pleura: Ill-defined irregular opacity in the right upper lobe. No pleural effusions or pneumothorax. Mediastinum: Mediastinal contours appear normal. Aortic arch atherosclerotic calcifications. Heart size is within normal limits. Bones and chest wall: No suspicious bony lesions. Overlying soft tissues appear unremarkable. IMPRESSION: Concern for right upper lobe pulmonary nodule. This could be further characterized with CT of the chest. Dictated by: Yassine Contreras M.D. on 03/29/2021 at 16:01 Approved by: Yassine Contreras M.D. on 03/29/2021 at 16:05
[2021-03-29] MEDS: HYDROMORPHONE 0.5 MG INJ IV ×2 (16:34→21:05)
--- NOTE | 2021-03-29 16:46 | PC.NURSE ---
Pt is sleeping peacefully with even, unlabored respirations after dilaudid admin. Appears comfortable. Sister has now left the bedside.
--- NOTE | 2021-03-29 17:58 | PC.NURSE ---
Checked in on patient. Observed breathing. Patient continues to rest.
[2021-03-29 18:26] LABS: PTT Partial Thromboplastin Tim 55 SECONDS (26.4-36.2)
[2021-03-29 18:31] LABS: Creatine Kinase 23 U/L (30-135)
[2021-03-29 18:44] LABS: INR 7.2 (0.9-1.3); Prothrombin Time 84.6 SECONDS (10.1-12.7)
--- NOTE | 2021-03-29 18:50 | DI.CT.S_ITS ---
PROCEDURE: CT HEAD/BRAIN WO CON INDICATIONS: possible seizure TECHNIQUE: Noncontrast 4.5 mm thick angled axial sections acquired from the foramen magnum to the vertex, with coronal and sagittal reformats. For radiation dose reduction, the following was used: automated exposure control, adjustment of mA and/or kV according to patient size. COMPARISON: None. FINDINGS: Image quality: Excellent. CSF spaces: Basal cisterns are patent. No extra-axial fluid collections. The ventricles are symmetric in size and shape. Brain: No intracranial bleeds or masses. There is cerebral volume loss for age, with resultant ventricular and sulcal prominence. There are periventricular and deep white matter chronic small vessel ischemic changes. There is intracranial internal carotid artery atherosclerosis. Skull and face: Calvarium and visualized facial bones appear intact, without suspicious lesions. Sinuses: Visualized sinuses and mastoids are clear. IMPRESSION: No acute intracranial process. Dictated by: Lawrence Toney M.D. on 03/29/2021 at 19:24 Approved by: Lawrence Toney M.D. on 03/29/2021 at 19:27
--- NOTE | 2021-03-29 19:00 | PC.NURSE ---
Rounded on this pt to assess her pain, and found her to be in another episode of not responding, staring off into space, snoring respirations, extreme diaphoresis and pallor, with stable HR and O2 sat but BP systolically in the 50's. MD's aware and at bedside. AMAURI lawson, team planning for central line, this RN to CT with pt on the monitor. Sheets changed and dry linens placed. Pt is now oriented again and communicating, taking sips of water.
[2021-03-29] MEDS: SODIUM CHLORIDE 0.9% 1,000 ML 125 ML IV (19:34)
--- NOTE | 2021-03-29 21:10 | DI.RAD.S_ITS ---
PROCEDURE: XR CHEST 1V INDICATIONS: post attemt IJ r/o pnuemo TECHNIQUE: One view of the chest was acquired. COMPARISON: [facility], CR, XR CHEST 1V, 03/29/2021, 16:18. FINDINGS: Surgical changes and devices: None. Lungs and pleura: No pleural effusions or pneumothorax. Redemonstrated right upper lobe ill-defined nodule measuring 1.5 cm. Mediastinum: Mediastinal contours appear normal. Heart size is normal. Bones and chest wall: No suspicious bony lesions. Overlying soft tissues appear unremarkable. IMPRESSION: No pneumothorax Redemonstrated right upper lobe pulmonary nodule. Recommend CT chest to exclude malignant/metastatic possibilities Dictated by: Lawrence Toney M.D. on 03/29/2021 at 21:46 Approved by: Lawrence Toney M.D. on 03/29/2021 at 21:47
--- NOTE | 2021-03-29 21:36 | PC.NURSE ---
Received report from GLORY Mayfield. Recent update--VM declined pt due to worsening status and need for ICU bed which is unavailable. Pt resting in bed. AAOx3. fluids infusing per SEP. BP 81/41. pain controlled at this time. Dr Smalls at bedside for R CL placement which was unsuccessful. Heparin bolus and gtt ordered. PTT noted to be elevated due to liver disease and Dr Smalls advised to hold heparin bolus and start heparin gtt per protocol.
--- NOTE | 2021-03-29 21:50 | PC.NURSE ---
Heparin gtt never started on pt and being held at this time due to INR.
--- NOTE | 2021-03-29 22:27 | PC.NURSE ---
Pt pulling off blankets and global marketing specialist. Breathing shallow and irregular. keeps stating hot. blankets removed and cold cloth applied to head. Pt's BP noted to be dropping. Currently 69/45, HR 85 NSR, aware and NS increased to 500 ml/hr per Dr Smalls. Pt prepped for femoral central line access.
[2021-03-29 22:47] LABS: Lactate (Lactic Acid) 4.9 mmol/L (0.7-2.1)
--- NOTE | 2021-03-29 23:26 | PC.NURSE ---
Moved to [facility] 2. Triple lumen central line placed in R Fem by Dr Smalls. fluids infusing. pt given water per request. states she is hot and throwing blankets off. single sheet over body at this time. BP 93/50 HR 89 NSR. Intermittently obtaining O2 sat due to cool fingers. 96-100% when adequate pleth. Pt's breathing appears more comfortable and regular at this time. Rouses to verbal and can answer questions appropriately
[2021-03-29] MEDS: SODIUM CHLORIDE 0.9% 1,000 ML 50 ML IV (23:55)
[2021-03-30] VITALS (41 sets, daily range): BP systolic 54–134; BP diastolic 33–69; PULSE 87–94; RESP 12–28; TEMP 35–36; O2SAT 90–100
[2021-03-30 00:31] LABS: Lactate (Lactic Acid) 2.5 mmol/L (0.7-2.1)
[2021-03-30 00:34] LABS: Reflexed Lactate in 2 Hours Y
[2021-03-30] MEDS: NOREPINEPHRINE 4 MG in DEXTROSE 5% IN WATER 250 ML 7.62 ML IV (01:27)
[2021-03-30] MEDS: metroNIDAZOLE 500 MG/100 ML PIGGYBACK 100 MG IV (01:27)
[2021-03-30] MEDS: SODIUM CHLORIDE 0.9% 1,641 ML 547 ML IV (01:40)
[2021-03-30] MEDS: HYDROMORPHONE 0.5 MG INJ IV ×3 (01:57→05:54)
--- NOTE | 2021-03-30 02:05 | PC.NURSE ---
Pt started on Levophed, titrated per MAR. c/o pain. given dilaudid 0.5mg and tolerated well. Temp tillman placed with <50 ml output of dark yellow urine. Current temp 96.1 core. pt refusing any warm blankets. BP currently 126/64 (90). rousable to verbal. NAD.
[2021-03-30 02:18] LABS: Reflexed Lactate in 2 Hours Y
[2021-03-30 02:45] LABS: Lactate 2HR (Lactic Acid Rflx) 2.4 mmol/L (0.7-2.1)
[2021-03-30 05:23] LABS: Hematocrit 21.6 % (36-46); Lactate (Lactic Acid) 2.3 mmol/L (0.7-2.1); Mean Corpuscular HGB Conc 32.6 % (30-36); Mean Corpuscular Hemoglobin 29.2 PG (26-34); Mean Corpuscular Volume 89.8 fL (80-100); Platelet Count 495 X10^3/uL (150-400); Red Blood Cell Count 2.41 X10^6/uL (4.0-5.2); Red Cell Distribution Width 15.9 % (11.6-14.8)
[2021-03-30 05:24] LABS: Alanine Aminotransferase 136 IU/L (<35); Albumin 2.4 g/dL (3.5-5.0); Albumin Globulin Ratio 0.9 (1.0-2.8); Alkaline Phosphatase 1089 U/L (38-126); Aspartate Aminotransferase 517 IU/L (14-36); BUN Creatinine Ratio 42.7 (6-22); Bilirubin Total 2.1 mg/dL (0.2-1.3); Blood Urea Nitrogen 53 mg/dL (7-17); Carbon Dioxide 19 mmol/L (22-32); Chloride 98 mmol/L (98-107); Creatine Kinase 86 U/L (30-135); Estimated Glomerular Filt Rate 43.5 mL/min (>60); Globulin 2.8 g/dL (1.7-4.1); Glucose 122 mg/dL (80-110); HEMOLYSIS < 15 (0-50); Potassium 3.8 mmol/L (3.4-5.1); Sodium 126 mmol/L (137-145); Total Protein 5.2 g/dL (6.3-8.2)
[2021-03-30 05:27] LABS: Add Manual Diff / Slide Review YES
[2021-03-30 05:38] LABS: Troponin I 0.945 ng/mL (0.01-0.034)
--- NOTE | 2021-03-30 06:06 | PC.NURSE ---
Norepinephrine and IVF NS continue en route to [place], maintained by transportation clerk
[2021-03-30 06:22] LABS: Anisocytosis 1+; Neutrophils Absolute Manual 29370 /uL (3000-5900); Total Cells Counted 100
[2021-03-30 07:07] LABS: Reflexed Lactate in 2 Hours Y
== END 2021-03-30 06:15 | disposition short-term general hospital (02) ==
PROVIDERS: Emergency Medicine; Emergency Provider Emergency Medicine
DX: E87.1 Hypo-osmolality and hyponatremia (principal); E80.6 Other disorders of bilirubin metabolism; D72.829 Elevated white blood cell count, unspecified; C25.9 Malignant neoplasm of pancreas, unspecified; A41.9 Sepsis, unspecified organism; Z20.822 Contact with and (suspected) exposure to COVID-19
CPT/HCPCS: 36415; 36573; 51798; 70450; 71045; 74177; 76705; 80048; 80053; 80074; 80076; 80320; 80329; 81001; 82550; 82977; 83605; 83690; 84484; 85007; 85025; 85610; 85730; 87040; 87086; 87635; 93005; 96365; 96366; 96367; 96368; 96375; 96376; 99285; 99291; 99292; C9803; G0480; J0696; J1170; J1644; J2270; Q9967